=== PATIENT | male | born 1955 | race African-American/Black ===

== ENCOUNTER 2017-06-02 22:50 | Emergency (ER) | payer OTHER, MEDICAID ==
[~2017-06-02] VITALS: Ht 177.8 cm; Wt 72.0 kg
[2017-06-03 03:10] VITALS: BP 127/76
[2017-06-03] MEDS ORDERED: IBUPROFEN 400MG TABLET PO ONE (03:15)
== END 2017-06-03 04:04 | disposition home or self-care (01) ==
LOC: ER 22:50
DX: F11.23 Opioid dependence with withdrawal (principal); I10 Essential (primary) hypertension; F17.200 Nicotine dependence, unspecified, uncomplicated
CPT/HCPCS: 99283

== ENCOUNTER 2018-09-25 04:56 | Inpatient (IN) | payer MEDICARE, MEDICAID, OTHER ==
[~2018-09-25] VITALS: Ht 182.9 cm; Wt 68.5 kg
[2018-09-25] MEDS ORDERED: FAMOTIDINE 20MG/2ML VIAL IV STA (06:40)
[2018-09-25] MEDS ORDERED: KETOROLAC 30MG/ML VIAL IV STA (06:40)
[2018-09-25] MEDS ORDERED: SODIUM CHLORIDE 0.9% 1,000 ML IV ONE (06:40)
[2018-09-25] MEDS ORDERED: MAGNESIUM/ALUMINUM HYDROXIDE/SIMETHICONE 30ML UDC PO STA (06:40)
[2018-09-25] MEDS ORDERED: ONDANSETRON HCL 4MG/2ML INJ IV STA (06:40)
[2018-09-25 07:07] LABS: HEMATOCRIT. 42.2 % (42.0-52.0); HEMOGLOBIN. 13.8 g/dL (14.0-18.0); MEAN CORPUSCULAR HEMOGLOBIN 28.5 pg (28.0-32.0); MEAN CORPUSCULAR VOLUME 87.4 fL (80.0-94.0); MEAN PLATELET VOLUME 8.9 fl (7.4-10.4); PLATELET 282 x1000/uL (130-400); RED BLOOD CELL COUNT 4.83 mill/uL (4.7-6.1); RED CELL DISTRIBUTION WIDTH 15.2 % (11.6-14.6)
[2018-09-25 07:14] LABS: CHLORIDE 103 mEq/L (98-107)
[2018-09-25 07:19] LABS: ETHANOL BLOOD < 10 mg/dL
[2018-09-25 07:32] LABS: INR 1.1; PROTHROMBIN TIME 11.4 sec (9.1-11.1)
[2018-09-25] MEDS ORDERED: PIPERACILLIN/TAZ 3.375G PREMIX 50 ML IV ONE (09:15)
[2018-09-25] MEDS ORDERED: METRONIDAZOLE 500 MG PREMIX 100 ML IV ONE (09:15)
[2018-09-25 09:43] LABS: PLATELET ESTIMATE NORMAL
[2018-09-25] MEDS ORDERED: SODIUM CHLORIDE 0.45% 1,000 ML IV SCH (11:22)
[2018-09-25] MEDS ORDERED: HYDROCODONE/ACETAMINOPHEN 5/325MG TABLET PO PRN (11:30)
[2018-09-25] MEDS ORDERED: HYDROCODONE/ACETAMINOPHEN 10/325MG TABLET PO PRN (11:30)
[2018-09-25] MEDS ORDERED: METRONIDAZOLE 500 MG PREMIX 100 ML IV SCH ×2 (11:30→18:00)
[2018-09-25] MEDS ORDERED: ENOXAPARIN 40MG/0.4ML SYR SUBCUT SCH (11:30)
[2018-09-25] MEDS ORDERED: MAGNESIUM/ALUMINUM HYDROXIDE/SIMETHICONE 30ML UDC PO PRN (11:30)
[2018-09-25] MEDS ORDERED: PANTOPRAZOLE 40MG DR TABLET PO SCH ×3 (11:30→21:00)
[2018-09-25 11:59] LABS: AMYLASE 41 IU/L (25-115)
[2018-09-25] MEDS ORDERED: METOCLOPRAMIDE HCL 10MG/2ML VIAL IV SCH (12:00)
[2018-09-25] MEDS ORDERED: SODIUM CHLORIDE 0.9% INJ 3ML FLUSH IVF SCH (14:00)
[2018-09-25 14:53] VITALS: BP 115/71
[2018-09-25 15:35] VITALS: BP 115/71
[2018-09-25 16:00] VITALS: BP 120/76
[2018-09-25 16:05] LABS: HEPATITIS B SURFACE ANTIGEN NEGATIVE
[2018-09-25] MEDS ORDERED: ONDANSETRON HCL 4MG/2ML INJ IV PRN (16:20)
[2018-09-25] MEDS ORDERED: ACETAMINOPHEN 325MG TABLET PO PRN (16:22)
[2018-09-25] MEDS ORDERED: ACETAMINOPHEN 650MG/20.3ML UDC GT PRN (16:23)
[2018-09-25] MEDS ORDERED: CLONIDINE 0.1MG TABLET PO PRN (16:24)
[2018-09-25] MEDS ORDERED: ACETAMINOPHEN 650MG SUPP PR PRN (16:24)
[2018-09-25] MEDS ORDERED: IPRATROPIUM/ALBUTEROL 0.5-3(2.5)MG/3ML NEB INH PRN (16:25)
[2018-09-25] MEDS ORDERED: DIPHENHYDRAMINE 50MG/ML VIAL IV PRN (16:25)
[2018-09-25] MEDS ORDERED: GUAIFENESIN 200MG/10ML SUGAR FREE UDC PO PRN (16:25)
[2018-09-25] MEDS ORDERED: DOCUSATE SODIUM 100MG CAPSULE PO PRN (16:25)
[2018-09-25 16:35] LABS: HEPATITIS A AB IGM NEGATIVE (NEGATIVE)
[2018-09-25] MEDS ORDERED: MORPHINE SULFATE 4 MG/ML CPJ (NOT FOR IM USE) IV PRN (16:36)
[2018-09-25 16:59] LABS: CLARITY URINE CLEAR (CLEAR); COLOR URINE DARK YELLOW (YELLOW); KETONES URINE TRACE (NEGATIVE); LEUKOCYTE ESTERASE URINE TRACE (NEGATIVE); NITRITE URINE NEGATIVE (NEGATIVE); OCCULT BLOOD URINE 2+ (NEGATIVE); PH URINE 5.5 (4.5-8.0); PROTEIN URINE 2+ (NEGATIVE); SPECIFIC GRAVITY URINE 1.036 (1.005-1.030)
[2018-09-25 17:37] LABS: *AMPHETAMINES SCREEN URINE NEGATIVE (NEGATIVE); *BARBITURATES SCREEN URINE NEGATIVE (NEGATIVE); *BENZODIAZEPINES SCREEN URINE NEGATIVE (NEGATIVE); *COCAINE SCREEN URINE PRESUMTIVE POSITIVE (NEGATIVE); METHADONE URINE SCREEN PRESUMTIVE POSITIVE (NEGATIVE); OPIATES URINE SCREEN PRESUMTIVE POSITIVE (NEGATIVE)
[2018-09-25 17:38] LABS: CANNABINOID URINE SCREEN NEGATIVE (NEGATIVE); PHENCYCLIDINE URINE SCREEN NEGATIVE (NEGATIVE)
[2018-09-25] MEDS ORDERED: METHADONE HCL 10MG TABLET PO NR (18:18)
[2018-09-25] MEDS ORDERED: HYDR25TA MT (18:23)
[2018-09-25] MEDS ORDERED: METH10OR11 PO (18:23)
[2018-09-25] MEDS ORDERED: LISI-604 MT (18:23)
[2018-09-25] MEDS ORDERED: NA PHOS,M-B/NA PHOS,DI-BA ENEMA 118ML PR PRN (21:00)
[2018-09-26] MEDS ORDERED: METHADONE HCL 10MG TABLET PO SCH (09:00)
== END 2018-09-25 19:15 | disposition left against medical advice (07) | DRG 872 ==
LOC: ER 04:56 → 8WST 10:11 → EDBEDREQSVC 10:14 → EDBEDREQ 10:14 → ENRESERV 13:02
PROVIDERS: ADMIT Family Medicine; ATTEND Family Medicine
DX: A41.9 Sepsis, unspecified organism (principal); K80.42 Calculus of bile duct with acute cholecystitis without obstruction; B19.20 Unspecified viral hepatitis C without hepatic coma; F11.10 Opioid abuse, uncomplicated; F17.210 Nicotine dependence, cigarettes, uncomplicated; I10 Essential (primary) hypertension; K20.9 Esophagitis, unspecified; K44.9 Diaphragmatic hernia without obstruction or gangrene; M48.00 Spinal stenosis, site unspecified; M51.36 Other intervertebral disc degeneration, lumbar region; E86.0 Dehydration
CPT/HCPCS: 36415; 71045; 74176; 80305; 82150; 83605; 83880; 84484; 86705; 86709; 86803; 87077; 87340; 93005; 96361; 96374; 96375; 99285; C1893; J1650; J1885; J2270; J2405; J2543; J2765; J3490; J7030

== ENCOUNTER 2024-03-29 04:20 | Inpatient (IN) | payer MEDICARE, MEDICAID, OTHER ==
[2024-03-29] VITALS (9 sets, daily range): BP systolic 122–160; BP diastolic 73–91; PULSE 60–80; RESP 16–22; TEMP 36.28068–36.72516; O2SAT 95–99
[~2024-03-29] VITALS: Ht 167.6 cm; Wt 68.0 kg
[~2024-03-29 04:20] MED LIST: ALBU18HF2 PO; AMLO10TA80 PO; APIX5TAB MT; ASPI-1406 PO; ATOR10TA69 PO; CARI350T27 PO; DIPH50CA38 PO; DUTA0.5C37 PO; GABA-532 PO; HYDR12.54 PO; LISI20TA31 MT; METH10OR11 PO; OXYC-580 PO
[2024-03-29] MEDS: ALBUTEROL (0.083%) 2.5MG/3ML NEB HHN STA (04:47)
[2024-03-29] MEDS: IPRATROPIUM BROMIDE (0.02%) 0.5MG/2.5ML NEB HHN STA (04:47)
[2024-03-29 05:18] LABS: BASOPHILS % 0.5 % (0.0-2.0); HEMATOCRIT. 34.5 % (42.0-52.0); HEMOGLOBIN. 10.4 g/dL (14.0-18.0); LYMPHOCYTES % 12.5 % (20.0-50.0); MEAN CORPUSCULAR HEMOGLOBIN 22.5 pg (28.0-32.0); MEAN CORPUSCULAR HGB CONC 30.1 g/dL (31.0-37.0); MEAN CORPUSCULAR VOLUME 74.6 fL (80.0-94.0); MEAN PLATELET VOLUME 9.6 fl (7.4-10.4); MONOCYTES % 14.3 % (2.0-8.0); NEUTROPHILS % 72.7 % (40.0-76.0); PLATELET 328 x1000/uL (130-400); RED BLOOD CELL COUNT 4.62 mill/uL (4.7-6.1); WHITE BLOOD COUNT 6.7 x1000/uL (4.5-11.0)
[2024-03-29 05:34] LABS: ADD RBC MORPHOLOGY YES
[2024-03-29 05:47] LABS: CHLORIDE 104 mEq/L (98-107); POTASSIUM 5.2 mEq/L (3.5-5.1); SODIUM 135 mEq/L (136-145)
[2024-03-29 05:48] LABS: CARBON DIOXIDE 23 mEq/L (21-32)
[2024-03-29 05:49] LABS: CALCIUM 9.5 mg/dL (8.7-10.4)
[2024-03-29 05:53] LABS: CREATININE 1.2 mg/dL (0.6-1.3); GLUCOSE 111 mg/dL (70-105); UREA NITROGEN BLOOD 44 mg/dL (9-23)
[2024-03-29 05:55] LABS: TROPONIN I HIGH SENSITIVITY 48 ng/L (3.0-53)
[2024-03-29] MEDS: METHYLPREDNISOLONE SOD SUCC 125MG/2ML (ACT-O-VIAL) IV STA (06:20)
[2024-03-29] MEDS ORDERED: CLONIDINE 0.1MG TABLET PO PRN (07:15)
[2024-03-29] MEDS: IPRATROPIUM/ALBUTEROL 0.5-3(2.5)MG/3ML NEB HHN SCH (07:15)
[2024-03-29] MEDS ORDERED: NITROGLYCERIN 0.4MG TABLET SL SL PRN (07:15)
[2024-03-29] MEDS ORDERED: GUAIFENESIN 200MG/10ML SUGAR FREE UDC PO PRN (07:15)
[2024-03-29] MEDS ORDERED: MAGNESIUM/ALUMINUM HYDROXIDE/SIMETHICONE 30ML UDC PO PRN (07:15)
[2024-03-29] MEDS ORDERED: ACETAMINOPHEN 325MG TABLET PO PRN ×2 (07:15)
[2024-03-29 07:48] LABS: TROPONIN I HIGH SENSITIVITY 24 ng/L (3.0-53)
[2024-03-29] MEDS: ENOXAPARIN 40MG/0.4ML SYR SUBCUT SCH (07:48)
[2024-03-29 07:57] LABS: FOLIC ACID (FOLATE) SERUM > 20.00 ng/mL (>5.38)
[2024-03-29 07:58] LABS: VITAMIN B12 SERUM 1420 pg/mL (211-911)
[2024-03-29 08:05] LABS: BG CARBOXYHEMOGLOBIN 0.8 % (0.5-1.5); BG DEOXYHEMOGLOBIN 1.3 % (0.0-5.0); BG HCO3 ACT 20.8 mmol/L (21.0-28.0); BG METHEMOGLOBIN 0.3 % (0.5-1.5); BG OXYGEN SATURATION 98.7 % (94.0-98.0); BG OXYHEMOGLOBIN 97.6 % (94.0-98.0); BG PH 7.418 (7.350-7.450); BG PO2 130.1 mmHg (83.0-108.0); BG SAMPLE SITE RIGHT RADIAL; BG TOTAL HEMOGLOBIN 11.6 g/dL (13.5-17.5); BG VENT MODE NASAL CANNULA
[2024-03-29] MEDS: LEVOFLOXACIN 750MG PREMIX 150 ML IV SCH (08:07)
[2024-03-29 08:13] LABS: IRON 29 ug/dL (65-175)
[2024-03-29 08:14] LABS: TRIGLYCERIDE 65 mg/dL (0-150)
[2024-03-29 08:15] LABS: LDL CHOLESTEROL 19 mg/dL (5-100)
[2024-03-29 08:16] LABS: CHOLESTEROL 62 mg/dL (<200); HDL CHOLESTEROL < 20 mg/dL (>55)
[2024-03-29] MEDS: IPRATROPIUM/ALBUTEROL 0.5-3(2.5)MG/3ML NEB NEB PRN (08:29)
[2024-03-29 08:39] LABS: ETHANOL BLOOD < 10 mg/dL (<10); TOTAL IRON BINDING CAPACITY > 670 ug/dl (250-425)
[2024-03-29 08:40] LABS: T4 FREE 1.43 ng/dL (0.89-1.76); THYROID STIMULATING HORMONE 0.64 uIU/mL (0.55-4.78)
[2024-03-29] MEDS: GUAIFENESIN 600MG ER TABLET PO SCH (09:00)
[2024-03-29] MEDS: FUROSEMIDE 40MG/4ML VIAL IVP SCH (09:15)
[2024-03-29] MEDS: ASPIRIN 325MG EC TABLET PO SCH (09:15)
[2024-03-29] MEDS: FAMOTIDINE 20MG TABLET PO SCH (09:15)
[2024-03-29] MEDS: LOSARTAN 50 MG TABLET PO SCH (09:15)
[2024-03-29] MEDS: KETOROLAC 15MG/ML VIAL IV PRN (09:38)
[2024-03-29 11:16] LABS: ANISOCYTOSIS 4+; PLATELET ESTIMATE NORMAL
[2024-03-29 11:17] LABS: HYPOCHROMASIA 1+
[2024-03-29 11:18] LABS: OVALOCYTES 1+
[2024-03-29] MEDS: ZOLPIDEM TARTRATE 5MG TABLET PO PRN (23:00)
[2024-03-30] VITALS (8 sets, daily range): BP systolic 116–152; BP diastolic 65–93; PULSE 44–91; RESP 15–22; TEMP 35.89176–37.11408; O2SAT 97–100
[2024-03-30 00:55] LABS: CREATINE KINASE MB FRACTION 2.2 ng/mL (0.5-3.6)
[2024-03-30] MEDS: ONDANSETRON HCL 4MG/2ML INJ IV PRN (04:01)
[2024-03-30] MEDS: DOCUSATE SODIUM 100MG CAPSULE PO PRN (04:01)
[2024-03-30] MEDS ORDERED: SACU1TAB7 PO (06:51)
[2024-03-30] MEDS ORDERED: EMPA10TA PO (06:51)
[2024-03-30] MEDS ORDERED: FURO40TA5 PO (06:51)
[2024-03-30] MEDS ORDERED: POTA-203 PO (06:51)
[2024-03-30] MEDS ORDERED: FERR325T30 PO (06:51)
[2024-03-30] MEDS ORDERED: METO-385 PO (06:51)
[2024-03-30] MEDS ORDERED: FINA5TAB11 PO (06:51)
[2024-03-30] MEDS: LEVOFLOXACIN 750MG PREMIX 150 ML IV SCH (10:00)
[2024-03-30 15:23] LABS: *AMPHETAMINES SCREEN URINE NEGATIVE (NEGATIVE); *BARBITURATES SCREEN URINE NEGATIVE (NEGATIVE); *BENZODIAZEPINES SCREEN URINE NEGATIVE (NEGATIVE); *COCAINE SCREEN URINE PRESUMPTIVE POSITIVE (NEGATIVE)
[2024-03-30 15:24] LABS: CANNABINOID URINE SCREEN NEGATIVE (NEGATIVE); ECSTASY MDMA SCREEN URINE NEGATIVE (NEGATIVE); METHADONE URINE SCREEN NEGATIVE (NEGATIVE); OPIATES URINE SCREEN PRESUMPTIVE POSITIVE (NEGATIVE); PHENCYCLIDINE URINE SCREEN NEGATIVE (NEGATIVE)
[2024-03-31] VITALS (10 sets, daily range): BP systolic 132–144; BP diastolic 60–97; PULSE 68–90; RESP 16–20; TEMP 36.28068–36.61404; O2SAT 96–100
[2024-03-31 19:08] LABS: BASOPHILS % 0.5 % (0.0-2.0); HEMATOCRIT. 38.5 % (42.0-52.0); HEMOGLOBIN. 11.4 g/dL (14.0-18.0); LYMPHOCYTES % 14.8 % (20.0-50.0); MEAN CORPUSCULAR HEMOGLOBIN 22.7 pg (28.0-32.0); MEAN CORPUSCULAR HGB CONC 29.7 g/dL (31.0-37.0); MEAN CORPUSCULAR VOLUME 76.5 fL (80.0-94.0); MEAN PLATELET VOLUME 9.6 fl (7.4-10.4); MONOCYTES % 10.5 % (2.0-8.0); NEUTROPHILS % 74.2 % (40.0-76.0); PLATELET 254 x1000/uL (130-400); RED BLOOD CELL COUNT 5.03 mill/uL (4.7-6.1); RED CELL DISTRIBUTION WIDTH 27.5 % (11.6-14.6)
[2024-03-31 19:11] LABS: DIFFERENTIAL COMMENT 1
[2024-03-31 19:19] LABS: CHLORIDE 103 mEq/L (98-107); POTASSIUM 3.8 mEq/L (3.5-5.1); SODIUM 135 mEq/L (136-145)
[2024-03-31 19:20] LABS: CARBON DIOXIDE 22 mEq/L (21-32)
[2024-03-31 19:21] LABS: CALCIUM 8.8 mg/dL (8.7-10.4)
[2024-03-31 19:22] LABS: CLARITY URINE CLEAR (CLEAR); COLOR URINE YELLOW (YELLOW); GLUCOSE URINE 1+ (NEGATIVE); KETONES URINE NEGATIVE (NEGATIVE); LEUKOCYTE ESTERASE URINE NEGATIVE (NEGATIVE); NITRITE URINE NEGATIVE (NEGATIVE); OCCULT BLOOD URINE NEGATIVE (NEGATIVE); PH URINE 5.5 (4.5-8.0); PROTEIN URINE TRACE (NEGATIVE); SPECIFIC GRAVITY URINE 1.022 (1.005-1.030)
[2024-03-31 19:25] LABS: CREATININE 0.9 mg/dL (0.6-1.3); GLUCOSE 88 mg/dL (70-105); UREA NITROGEN BLOOD 26 mg/dL (9-23)
[2024-03-31 19:27] LABS: ALANINE AMINOTRANSFERASE 41 IU/L (10-49); ALBUMIN 3.4 g/dL (3.2-4.8); ASPARTATE AMINOTRANSFERASE 57 IU/L (<34)
[2024-03-31 19:28] LABS: BILIRUBIN TOTAL 0.7 mg/dL (0.1-1.0); PHOSPHORUS 2.7 mg/dL (2.5-4.9); PROTEIN TOTAL 7.5 g/dL (6.0-8.3)
[2024-03-31 19:39] LABS: BACTERIA URINE NONE SEEN; RBC URINE NONE SEEN /hpf (0-2); SQUAMOUS EPITHELIAL CELL URINE RARE /lpf (RARE/1+); WBC URINE NONE SEEN /hpf (0-2)
[2024-04-01] VITALS: BP 144/97
[2024-04-01 00:14] VITALS: PULSE 74; RESP 20; O2SAT 96
[2024-04-01 04:31] VITALS: PULSE 78; RESP 18; TEMP 97.8
[2024-04-01 08:00] VITALS: O2SAT 92
[2024-04-01] MEDS ORDERED: LIDOCAINE HCL 1% 10 MG/ML 10ML VIAL ONE (08:26)
[2024-04-01 08:30] VITALS: BP 147/85; PULSE 90; RESP 20; TEMP 36.55848; O2SAT 100
[2024-04-01 12:00] VITALS: BP 157/96; PULSE 62; RESP 20; TEMP 36.61404; O2SAT 99
[2024-04-01] MEDS ORDERED: KETOROLAC 15MG/ML VIAL IV PRN (12:30)
== END 2024-04-01 14:03 | disposition left against medical advice (07) | DRG 981 ==
LOC: ER 04:20 → 7EST 05:16 → EDBEDREQ 05:59 → EDBEDREQTM 05:59 → 7EST 04-01 05:14
PROVIDERS: ADMIT Internal Medicine; ATTEND Internal Medicine
PROC: 0KBP0ZZ Excision of Left Hip Muscle, Open Approach (ICD-10-PCS; principal; 2024-03-30)
PROC: 0KBN0ZZ Excision of Right Hip Muscle, Open Approach (ICD-10-PCS; 2024-03-30)
PROC: 05HY33Z Insertion of Infusion Device into Upper Vein, Percutaneous Approach (ICD-10-PCS; 2024-04-01)
PROC: B54MZZA Ultrasonography of Right Upper Extremity Veins, Guidance (ICD-10-PCS; 2024-04-01)
DX: J44.1 Chronic obstructive pulmonary disease with (acute) exacerbation (principal); J96.01 Acute respiratory failure with hypoxia; L89.153 Pressure ulcer of sacral region, stage 3; I11.0 Hypertensive heart disease with heart failure; D50.9 Iron deficiency anemia, unspecified; I50.9 Heart failure, unspecified; L98.499 Non-pressure chronic ulcer of skin of other sites with unspecified severity; F19.90 Other psychoactive substance use, unspecified, uncomplicated; E78.00 Pure hypercholesterolemia, unspecified; Z53.29 Procedure and treatment not carried out because of patient's decision for other reasons; Z86.718 Personal history of other venous thrombosis and embolism; Z87.891 Personal history of nicotine dependence; Z99.81 Dependence on supplemental oxygen
CPT/HCPCS: 36415; 36573; 36600; 71045; 80048; 80053; 80061; 80305; 80320; 81003; 82375; 82550; 82553; 82607; 82746; 82805; 83036; 83540; 83550; 83735; 83880; 84100; 84439; 84443; 84484; 85025; 93970; 94640; 97165; 99291; C1725; C1893; J1650; J1885; J1940; J1956; J2405; J2919; J3490; G0480

== ENCOUNTER 2024-04-19 09:55 | Emergency (ER) | payer MEDICARE, MEDICAID, OTHER ==
[~2024-04-19] VITALS: Ht 165.1 cm; Wt 75.0 kg
[~2024-04-19 09:55] MED LIST changes: +EMPA10TA PO; +FERR325T30 PO; +FINA5TAB11 PO; +FURO40TA5 PO; +METO-385 PO; +POTA-203 PO; +SACU1TAB7 PO
[2024-04-19 09:59] VITALS: O2SAT 100
[2024-04-19] MEDS: MORPHINE SULFATE 4 MG/ML INJ (FOR IV/IM USE) IV ONE (10:38)
[2024-04-19 10:40] LABS: BASOPHILS % 0.6 % (0.0-2.0); HEMATOCRIT. 36.7 % (42.0-52.0); HEMOGLOBIN. 11.7 g/dL (14.0-18.0); LYMPHOCYTES % 32.4 % (20.0-50.0); MEAN CORPUSCULAR HEMOGLOBIN 23.9 pg (28.0-32.0); MEAN CORPUSCULAR HGB CONC 31.8 g/dL (31.0-37.0); MEAN CORPUSCULAR VOLUME 75.1 fL (80.0-94.0); MEAN PLATELET VOLUME 9.1 fl (7.4-10.4); MONOCYTES % 9.7 % (2.0-8.0); NEUTROPHILS % 57.3 % (40.0-76.0); PLATELET 246 x1000/uL (130-400); RED BLOOD CELL COUNT 4.89 mill/uL (4.7-6.1); WHITE BLOOD COUNT 6.5 x1000/uL (4.5-11.0)
[2024-04-19 10:43] LABS: ADD RBC MORPHOLOGY YES; DIFFERENTIAL COMMENT 1
[2024-04-19 10:45] LABS: CARBON DIOXIDE 30 mEq/L (21-32); CHLORIDE 102 mEq/L (98-107); POTASSIUM 3.4 mEq/L (3.5-5.1); SODIUM 140 mEq/L (136-145)
[2024-04-19 10:46] LABS: CALCIUM 8.8 mg/dL (8.7-10.4)
[2024-04-19 10:51] LABS: GLUCOSE 117 mg/dL (70-105); UREA NITROGEN BLOOD 26 mg/dL (9-23)
[2024-04-19 10:52] LABS: ALANINE AMINOTRANSFERASE 13 IU/L (10-49); ALBUMIN 3.5 g/dL (3.2-4.8); ASPARTATE AMINOTRANSFERASE 26 IU/L (<34)
[2024-04-19 10:53] LABS: BILIRUBIN DIRECT 0.2 mg/dL (<=3.0); BILIRUBIN TOTAL 0.4 mg/dL (0.1-1.0); PROTEIN TOTAL 7.5 g/dL (6.0-8.3)
[2024-04-19 11:04] LABS: CREATININE 1.3 mg/dL (0.6-1.3)
[2024-04-19] MEDS ORDERED: IOHEXOL-300 100 ML BOTTLE ONE (12:12)
[2024-04-19 12:57] LABS: PLATELET ESTIMATE NORMAL
[2024-04-19 12:58] LABS: ANISOCYTOSIS 2+; MICROCYTOSIS 2+
[2024-04-19 19:58] VITALS: BP 120/83; PULSE 71; RESP 16; TEMP 36.78072; O2SAT 97
== END 2024-04-19 20:02 | disposition home or self-care (01) ==
LOC: ER 10:16
DX: R10.9 Unspecified abdominal pain (principal); R11.2 Nausea with vomiting, unspecified; I11.0 Hypertensive heart disease with heart failure; I50.9 Heart failure, unspecified; J44.1 Chronic obstructive pulmonary disease with (acute) exacerbation; Z79.899 Other long term (current) drug therapy; Z86.19 Personal history of other infectious and parasitic diseases
CPT/HCPCS: 99285; 74177; 96374; 80076; 80048; 83690; 85025; 36415; Q9967; J2270

== ENCOUNTER 2024-04-24 15:42 | Inpatient (IN) | payer MEDICARE, MEDICAID, OTHER ==
[~2024-04-24] VITALS: Ht 172.7 cm; Wt 63.0 kg
[2024-04-24 15:47] VITALS: O2SAT 100
[2024-04-24 16:18] LABS: BASOPHILS % 0.1 % (0.0-2.0); EOSINOPHILS % 0.1 % (0.0-5.0); HEMATOCRIT. 33.7 % (42.0-52.0); HEMOGLOBIN. 9.9 g/dL (14.0-18.0); LYMPHOCYTES % 11.4 % (20.0-50.0); MEAN CORPUSCULAR HEMOGLOBIN 22.8 pg (28.0-32.0); MEAN CORPUSCULAR HGB CONC 29.3 g/dL (31.0-37.0); MEAN CORPUSCULAR VOLUME 77.9 fL (80.0-94.0); MEAN PLATELET VOLUME 9.8 fl (7.4-10.4); NEUTROPHILS % 78.4 % (40.0-76.0); PLATELET 252 x1000/uL (130-400); RED BLOOD CELL COUNT 4.33 mill/uL (4.7-6.1); RED CELL DISTRIBUTION WIDTH 24.7 % (11.6-14.6); WHITE BLOOD COUNT 12.5 x1000/uL (4.5-11.0)
[2024-04-24 16:20] LABS: ADD RBC MORPHOLOGY YES; DIFFERENTIAL COMMENT 1
[2024-04-24 16:27] LABS: CHLORIDE 99 mEq/L (98-107); POTASSIUM 4.7 mEq/L (3.5-5.1); SODIUM 142 mEq/L (136-145)
[2024-04-24 16:28] LABS: CARBON DIOXIDE 19 mEq/L (21-32)
[2024-04-24 16:29] LABS: CALCIUM 9.5 mg/dL (8.7-10.4)
[2024-04-24 16:30] LABS: INR 2.2; PROTHROMBIN TIME 23.1 sec (9.6-11.0)
[2024-04-24 16:34] LABS: UREA NITROGEN BLOOD 54 mg/dL (9-23)
[2024-04-24 16:35] LABS: ALANINE AMINOTRANSFERASE 34 IU/L (10-49); ALBUMIN 3.4 g/dL (3.2-4.8); ASPARTATE AMINOTRANSFERASE 85 IU/L (<34)
[2024-04-24 16:36] LABS: BILIRUBIN DIRECT 0.9 mg/dL (<=3.0); BILIRUBIN TOTAL 1.4 mg/dL (0.1-1.0); PROTEIN TOTAL 7.2 g/dL (6.0-8.3)
[2024-04-24 16:37] LABS: CREATININE 1.9 mg/dL (0.6-1.3); GLUCOSE 34 mg/dL (70-105)
[2024-04-24 16:39] LABS: TROPONIN I HIGH SENSITIVITY 104 ng/L (3.0-53)
[2024-04-24 17:01] LABS: LACTIC ACID 16.5 mmol/L (0.4-2.0)
[2024-04-24] MEDS: DEXT 5%/0.9% NACL 500 ML IV ONE (17:16)
[2024-04-24] MEDS: PIPERACILLIN/TAZO 3.375G/50ML 50 ML IV STA (17:16)
[2024-04-24] MEDS: DEXTROSE 50% WATER 50ML SYRINGE IV ONE (17:16)
[2024-04-24 17:21] LABS: ANISOCYTOSIS 4+; MICROCYTOSIS 1+; OVALOCYTES 1+; PLATELET ESTIMATE NORMAL
[2024-04-24 17:50] LABS: BG BASE EXCESS -10.5 mmol/L (-2.0-3.0); BG CARBOXYHEMOGLOBIN 0.2 % (0.5-1.5); BG FRACTION INSPIRED OXYGEN 32; BG HCO3 ACT 14.5 mmol/L (21.0-28.0); BG METHEMOGLOBIN 0.3 % (0.5-1.5); BG OXYHEMOGLOBIN 96.5 % (94.0-98.0); BG PCO2 29.4 mmHg (35.0-48.0); BG PO2 94.4 mmHg (83.0-108.0); BG SAMPLE SITE RIGHT RADIAL; BG VENT MODE NASAL CANNULA
[2024-04-24 19:03] LABS: TROPONIN I HIGH SENSITIVITY 85 ng/L (3.0-53)
[2024-04-24] MEDS ORDERED: MAGNESIUM/ALUMINUM HYDROXIDE/SIMETHICONE 30ML UDC PO PRN (20:00)
[2024-04-24] MEDS ORDERED: DOCUSATE SODIUM 100MG CAPSULE PO PRN (20:00)
[2024-04-24] MEDS ORDERED: ONDANSETRON HCL 4MG/2ML INJ IV PRN (20:00)
[2024-04-24] MEDS ORDERED: GUAIFENESIN 200MG/10ML SUGAR FREE UDC PO PRN (20:00)
[2024-04-24] MEDS ORDERED: ACETAMINOPHEN 325MG TABLET PO PRN ×2 (20:00)
[2024-04-24] MEDS ORDERED: IPRATROPIUM/ALBUTEROL 0.5-3(2.5)MG/3ML NEB HHN PRN (20:00)
[2024-04-24] MEDS ORDERED: CLONIDINE 0.1MG TABLET PO PRN (20:00)
[2024-04-24] MEDS: VANCOMYCIN 1.25GM/250ML 250 ML IV SCH (20:05)
[2024-04-24 22:57] LABS: CREATINE KINASE MB FRACTION 5.6 ng/mL (0.5-3.6)
[2024-04-24 22:58] LABS: AMMONIA 86 uMol/L (<32)
[2024-04-24 23:21] LABS: CLARITY URINE CLOUDY (CLEAR); COLOR URINE DARK YELLOW (YELLOW); GLUCOSE URINE NEGATIVE (NEGATIVE); KETONES URINE NEGATIVE (NEGATIVE); LEUKOCYTE ESTERASE URINE TRACE (NEGATIVE); NITRITE URINE NEGATIVE (NEGATIVE); OCCULT BLOOD URINE NEGATIVE (NEGATIVE); PH URINE 5.5 (4.5-8.0); PROTEIN URINE 2+ (NEGATIVE)
[2024-04-24 23:29] LABS: *AMPHETAMINES SCREEN URINE NEGATIVE (NEGATIVE); *BARBITURATES SCREEN URINE NEGATIVE (NEGATIVE); *BENZODIAZEPINES SCREEN URINE NEGATIVE (NEGATIVE); *COCAINE SCREEN URINE PRESUMPTIVE POSITIVE (NEGATIVE); CANNABINOID URINE SCREEN NEGATIVE (NEGATIVE); METHADONE URINE SCREEN NEGATIVE (NEGATIVE); OPIATES URINE SCREEN PRESUMPTIVE POSITIVE (NEGATIVE); PHENCYCLIDINE URINE SCREEN NEGATIVE (NEGATIVE)
[2024-04-24] MEDS: PIPERACILLIN/TAZO 3.375G/50ML 50 ML IV SCH (23:29)
[2024-04-24] MEDS: FUROSEMIDE 40MG/4ML VIAL IVP SCH (23:29)
[2024-04-24 23:30] LABS: ECSTASY MDMA SCREEN URINE NEGATIVE (NEGATIVE)
[2024-04-25] VITALS (99 sets, daily range): BP systolic 30–147; BP diastolic 17–101; PULSE 61–99; RESP 16–31; TEMP 31.947–36.418; O2SAT 20–98
[2024-04-25] MEDS: AZITHROMYCIN 500MG/250ML 250 ML IV SCH ×2 (00:05→22:40)
[2024-04-25 00:32] LABS: RBC URINE 0-2 /hpf (0-2); SQUAMOUS EPITHELIAL CELL URINE 1+ /lpf (RARE/1+)
[2024-04-25 00:33] LABS: BACTERIA URINE TRACE
[2024-04-25] MEDS ORDERED: NOREPINEPHRINE 8MG/250ML PMX 250 ML IV ONE (01:03)
[2024-04-25] MEDS ORDERED: NOREPINEPHRINE 8MG/250ML PMX 250 ML IV STA (01:07)
[2024-04-25] MEDS ORDERED: SODIUM CHLORIDE 0.9% 1,000 ML IV STA (01:07)
[2024-04-25] MEDS ORDERED: NOREPINEPHRINE 8MG/250ML PMX 250 ML IV PRN (01:15)
[2024-04-25] MEDS ORDERED: EPINEPHRINE 5 MG in SODIUM CHLORIDE 0.9% 250 ML IV PRN (01:45)
[2024-04-25 02:31] LABS: LACTIC ACID 18.4 mmol/L (0.4-2.0)
[2024-04-25] MEDS: EPINEPHRINE 10 MG in SODIUM CHLORIDE 0.9% 240 ML IV PRN (04:28)
[2024-04-25] MEDS: DOPAMINE 400MG/250ML PREMIX 250 ML IV PRN (04:29)
[2024-04-25] MEDS: VASOPRESSIN 20 UNIT in SODIUM CHLORIDE 0.9% 99 ML IV PRN (04:32)
[2024-04-25 04:33] LABS: BG BASE EXCESS -25.3 mmol/L (-2.0-3.0); BG CARBOXYHEMOGLOBIN 0.6 % (0.5-1.5); BG DEOXYHEMOGLOBIN 11.2 % (0.0-5.0); BG FRACTION INSPIRED OXYGEN 100; BG HCO3 ACT 7.3 mmol/L (21.0-28.0); BG METHEMOGLOBIN 0.3 % (0.5-1.5); BG OXYGEN SATURATION 88.7 % (94.0-98.0); BG OXYHEMOGLOBIN 87.9 % (94.0-98.0); BG PCO2 44.9 mmHg (35.0-48.0); BG PH 6.831 (7.350-7.450); BG PO2 100.5 mmHg (83.0-108.0); BG SAMPLE SITE ALINE; BG TOTAL HEMOGLOBIN 8.5 g/dL (13.5-17.5)
[2024-04-25] MEDS: PHENYLEPHRINE 100 MG in DEXT 5% WATER 240 ML IV PRN (04:33)
[2024-04-25] MEDS: NOREPINEPHRINE 32 MG in DEXT 5% WATER 218 ML IV PRN (04:34)
[2024-04-25] MEDS ORDERED: SODIUM BICARBONATE 8.4% 50MEQ/50ML SYR IV NR (05:00)
[2024-04-25] MEDS: SODIUM BICARBONATE 8.4% 50MEQ/50ML SYR IV NR ×3 (05:03→15:23)
[2024-04-25] MEDS: SODIUM BICARBONATE 100 MEQ in DEXTROSE 5% WATER 900 ML IV SCH (05:21)
[2024-04-25 05:56] LABS: BG BASE EXCESS -20.3 mmol/L (-2.0-3.0); BG CARBOXYHEMOGLOBIN 0.5 % (0.5-1.5); BG DEOXYHEMOGLOBIN 6.4 % (0.0-5.0); BG FRACTION INSPIRED OXYGEN 100; BG HCO3 ACT 9.5 mmol/L (21.0-28.0); BG METHEMOGLOBIN 0.1 % (0.5-1.5); BG OXYGEN SATURATION 93.6 % (94.0-98.0); BG PCO2 38.9 mmHg (35.0-48.0); BG PH 7.007 (7.350-7.450); BG PO2 109.5 mmHg (83.0-108.0); BG SAMPLE SITE ALINE; BG TOTAL HEMOGLOBIN 8.1 g/dL (13.5-17.5); BG VENT MODE AC/PRVC
[2024-04-25 05:59] LABS: CHLORIDE 108 mEq/L (98-107); SODIUM 148 mEq/L (136-145)
[2024-04-25 06:00] LABS: CALCIUM 8.8 mg/dL (8.7-10.4); INR 3.6; PROTHROMBIN TIME 36.7 sec (9.6-11.0)
[2024-04-25 06:03] LABS: CREATINE KINASE MB FRACTION 7.1 ng/mL (0.5-3.6)
[2024-04-25 06:05] LABS: CREATININE 1.7 mg/dL (0.6-1.3); GLUCOSE 59 mg/dL (70-105); TRIGLYCERIDE 41 mg/dL (0-150); UREA NITROGEN BLOOD 49 mg/dL (9-23)
[2024-04-25 06:06] LABS: LDL CHOLESTEROL 27 mg/dL (5-100)
[2024-04-25 06:07] LABS: CHOLESTEROL 54 mg/dL (<200); CREATINE KINASE 312 IU/L (46-171); HDL CHOLESTEROL < 20 mg/dL (>55)
[2024-04-25 06:08] LABS: T4 FREE 0.59 ng/dL (0.89-1.76); THYROID STIMULATING HORMONE 6.93 uIU/mL (0.55-4.78)
[2024-04-25 06:20] LABS: CARBON DIOXIDE < 10 mEq/L (21-32)
[2024-04-25 06:21] LABS: TROPONIN I HIGH SENSITIVITY 335 ng/L (3.0-53)
[2024-04-25 06:33] LABS: HEMATOCRIT. 28.7 % (42.0-52.0); HEMOGLOBIN. 7.7 g/dL (14.0-18.0); MEAN CORPUSCULAR HEMOGLOBIN 23.3 pg (28.0-32.0); MEAN CORPUSCULAR HGB CONC 26.7 g/dL (31.0-37.0); MEAN PLATELET VOLUME 10.2 fl (7.4-10.4); PLATELET 95 x1000/uL (130-400); RED CELL DISTRIBUTION WIDTH 25.1 % (11.6-14.6)
[2024-04-25 06:35] LABS: DIFFERENTIAL COMMENT 1
[2024-04-25] MEDS: BLOOD SUGAR DIAGNOSTIC STRIP TEST SCH (08:05)
[2024-04-25 08:26] LABS: BG BASE EXCESS -19.6 mmol/L (-2.0-3.0); BG CARBOXYHEMOGLOBIN 0.3 % (0.5-1.5); BG DEOXYHEMOGLOBIN 8.6 % (0.0-5.0); BG FRACTION INSPIRED OXYGEN 100; BG HCO3 ACT 9.4 mmol/L (21.0-28.0); BG OXYGEN SATURATION 91.4 % (94.0-98.0); BG OXYHEMOGLOBIN 91.1 % (94.0-98.0); BG PCO2 33.8 mmHg (35.0-48.0); BG SAMPLE SITE ALINE; BG TOTAL HEMOGLOBIN 9.2 g/dL (13.5-17.5); BG VENT MODE VENT - PRVC
[2024-04-25] MEDS: IPRATROPIUM/ALBUTEROL 0.5-3(2.5)MG/3ML NEB HHN SCH (08:53)
[2024-04-25] MEDS: DUTASTERIDE 0.5MG CAPSULE PO SCH (08:57)
[2024-04-25] MEDS: ASPIRIN 81MG EC TABLET PO SCH (08:58)
[2024-04-25] MEDS: AMLODIPINE 10MG TABLET PO SCH (09:00)
[2024-04-25] MEDS ORDERED: APIXABAN 5 MG TABLET PO SCH (09:00)
[2024-04-25] MEDS: METOPROLOL SUCCINATE 50MG ER TABLET PO SCH (09:00)
[2024-04-25] MEDS: FERROUS SULFATE 325MG TABLET PO SCH (09:00)
[2024-04-25] MEDS: PANTOPRAZOLE SODIUM 40 MG/VIAL IV SCH (09:32)
[2024-04-25] MEDS: SODIUM BICARBONATE 150 MEQ in DEXTROSE 5% WATER 850 ML IV SCH (10:00)
[2024-04-25] MEDS: SODIUM ZIRCONIUM CYCLOSILICATE 10GM/PACKET PO NR (10:20)
[2024-04-25 11:15] LABS: ANISOCYTOSIS 2+; NUCLEATED RED BLOOD CELLS 1 /100 WBC; PLATELET ESTIMATE SLIGHTLY DECREASED
[2024-04-25] MEDS: CEFEPIME 2GM/100ML 100 ML IV SCH (11:27)
[2024-04-25] MEDS: METRONIDAZOLE 500 MG PREMIX 100 ML IV SCH (13:42)
[2024-04-25] MEDS ORDERED: LACTULOSE 20G/30ML UDC PO SCH (14:00)
[2024-04-25 14:20] LABS: BG BASE EXCESS -19.4 mmol/L (-2.0-3.0); BG CARBOXYHEMOGLOBIN 0.2 % (0.5-1.5); BG DEOXYHEMOGLOBIN 0.5 % (0.0-5.0); BG FRACTION INSPIRED OXYGEN 100; BG HCO3 ACT 7.9 mmol/L (21.0-28.0); BG METHEMOGLOBIN 0.3 % (0.5-1.5); BG OXYGEN SATURATION 99.5 % (94.0-98.0); BG PCO2 23.7 mmHg (35.0-48.0); BG PH 7.142 (7.350-7.450); BG PO2 222.3 mmHg (83.0-108.0); BG SAMPLE SITE ALINE; BG TOTAL HEMOGLOBIN 9.8 g/dL (13.5-17.5); BG VENT MODE VENT - PRVC
[2024-04-25] MEDS: VANCOMYCIN 750MG/150ML (BAXTER) IV SCH (15:24)
[2024-04-25] MEDS ORDERED: MIDAZOLAM HCL 100 MG in SODIUM CHLORIDE 0.9% 80 ML IV PRN (16:15)
[2024-04-25] MEDS: FENTANYL 2500MCG/250ML PMX 250 ML IV PRN (18:06)
[2024-04-25] MEDS: DEXTROSE 50% WATER 50ML SYRINGE IV PRN (21:57)
[2024-04-25] MEDS: ATORVASTATIN CALCIUM 10MG TABLET PO SCH (22:01)
[2024-04-26] VITALS (41 sets, daily range): BP systolic 32–149; BP diastolic 19–92; PULSE 39–107; RESP 17–28; TEMP 33.50268–35.89176; O2SAT 0–98
[2024-04-26 05:31] LABS: MEAN CORPUSCULAR HEMOGLOBIN 23.3 pg (28.0-32.0); MEAN CORPUSCULAR HGB CONC 26.6 g/dL (31.0-37.0); MEAN CORPUSCULAR VOLUME 87.5 fL (80.0-94.0); PLATELET 59 x1000/uL (130-400); RED BLOOD CELL COUNT 2.93 mill/uL (4.7-6.1); RED CELL DISTRIBUTION WIDTH 25.7 % (11.6-14.6); WHITE BLOOD COUNT 11.9 x1000/uL (4.5-11.0)
[2024-04-26 05:37] LABS: CALCIUM 7.3 mg/dL (8.7-10.4); CHLORIDE 100 mEq/L (98-107); POTASSIUM 4.8 mEq/L (3.5-5.1); SODIUM 141 mEq/L (136-145)
[2024-04-26 05:42] LABS: CREATININE 2.1 mg/dL (0.6-1.3)
[2024-04-26 05:43] LABS: UREA NITROGEN BLOOD 57 mg/dL (9-23)
[2024-04-26 05:55] LABS: GLUCOSE 214 mg/dL (70-105)
[2024-04-26 06:02] LABS: CARBON DIOXIDE < 10 mEq/L (21-32)
[2024-04-26 07:05] LABS: INR 2.8; PROTHROMBIN TIME 29.2 sec (9.6-11.0)
[2024-04-26 08:14] LABS: HEMATOCRIT 25.7 % (42.0-52.0); HEMOGLOBIN 6.8 g/dL (14.0-18.0)
[2024-04-26] MEDS ORDERED: CEFEPIME 1GM/50ML 50 ML IV SCH (11:00)
== END 2024-04-26 09:24 | DRG 871 ==
LOC: ER 15:42 → EDBEDREQ 16:13 → CVICU 18:34 → EDBEDREQ 18:34 → EDBEDREQSVC 04-25 02:13
PROVIDERS: ADMIT Hospitalist; ATTEND Hospitalist
PROC: 5A1945Z Respiratory Ventilation, 24-96 Consecutive Hours (ICD-10-PCS; principal; 2024-04-25)
PROC: 0BH17EZ Insertion of Endotracheal Airway into Trachea, Via Natural or Artificial Opening (ICD-10-PCS; 2024-04-25)
PROC: 03HY32Z Insertion of Monitoring Device into Upper Artery, Percutaneous Approach (ICD-10-PCS; 2024-04-25)
PROC: 5A12012 Performance of Cardiac Output, Single, Manual (ICD-10-PCS; 2024-04-25)
PROC: 06HY33Z Insertion of Infusion Device into Lower Vein, Percutaneous Approach (ICD-10-PCS; 2024-04-25)
PROC: B54BZZA Ultrasonography of Right Lower Extremity Veins, Guidance (ICD-10-PCS; 2024-04-25)
PROC: 5A12012 Performance of Cardiac Output, Single, Manual (ICD-10-PCS; 2024-04-26)
DX: A41.9 Sepsis, unspecified organism (principal); G92.8 Other toxic encephalopathy; I21.4 Non-ST elevation (NSTEMI) myocardial infarction; J96.01 Acute respiratory failure with hypoxia; I50.23 Acute on chronic systolic (congestive) heart failure; R65.21 Severe sepsis with septic shock; J18.9 Pneumonia, unspecified organism; J44.1 Chronic obstructive pulmonary disease with (acute) exacerbation; N17.9 Acute kidney failure, unspecified; E72.20 Disorder of urea cycle metabolism, unspecified; J44.0 Chronic obstructive pulmonary disease with (acute) lower respiratory infection; N39.0 Urinary tract infection, site not specified; E87.20 Acidosis, unspecified; E87.0 Hyperosmolality and hypernatremia; F11.23 Opioid dependence with withdrawal; F19.10 Other psychoactive substance abuse, uncomplicated; I11.0 Hypertensive heart disease with heart failure; D50.9 Iron deficiency anemia, unspecified; N40.0 Benign prostatic hyperplasia without lower urinary tract symptoms; E16.2 Hypoglycemia, unspecified; E03.9 Hypothyroidism, unspecified; S41.102A Unspecified open wound of left upper arm, initial encounter; Z20.822 Contact with and (suspected) exposure to COVID-19; F17.210 Nicotine dependence, cigarettes, uncomplicated; I27.20 Pulmonary hypertension, unspecified; X58.XXXA Exposure to other specified factors, initial encounter; I46.9 Cardiac arrest, cause unspecified; D69.6 Thrombocytopenia, unspecified; I48.0 Paroxysmal atrial fibrillation; Z99.81 Dependence on supplemental oxygen; Z79.01 Long term (current) use of anticoagulants; Z79.82 Long term (current) use of aspirin; Z79.899 Other long term (current) drug therapy; Y93.89 Activity, other specified; Y92.89 Other specified places as the place of occurrence of the external cause; Y99.8 Other external cause status
CPT/HCPCS: 31500; 36415; 36600; 71045; 76770; 78580; 80048; 80061; 80076; 80202; 80305; 80320; 81003; 82140; 82375; 82550; 82553; 82805; 82962; 83605; 83880; 84145; 84439; 84443; 84484; 85025; 85027; 85044; 85379; 86850; 86900; 86920; 87070; 87426; 87804; 92950; 93005; 93306; 93970; 94003; 94640; 99291; J0456; J0692; J1265; J1940; J2405; J2470; J2543; J3010; J3370; J3490; J7030; J7042; J7050; J7060; J7070; G0480